=== PATIENT | male | born 1940 | race Caucasian/White ===

== ENCOUNTER 2023-05-08 12:17 | Emergency (ER) | payer MEDICARE ==
[2023-05-08] MEDS ORDERED: Lidocaine 1% PF 5 ML VIAL ONE (15:52)
== END 2023-05-08 17:17 | disposition left against medical advice (07) ==
LOC: MADERS 12:17
DX: S61.213A Laceration without foreign body of left middle finger without damage to nail, initial encounter (principal); W26.0XXA Contact with knife, initial encounter
CPT/HCPCS: 99282